=== PATIENT | male | born 2000 | race Hispanic/Latino ===

== ENCOUNTER 2020-06-11 17:44 | Emergency (ER) | payer OTHER ==
[~2020-06-11] VITALS: Ht 165.1 cm; Wt 72.6 kg
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
[2020-06-11] MEDS ORDERED: TOBRAMYCIN/DEXAMETHASONE(OPTH) 3.5 GM TUBE OP ONE (18:45)
[2020-06-11] MEDS ORDERED: TETRACAINE HCL 0.5% OPTH SOLN 4 ML BTL OP ONE (18:45)
--- NOTE | 2020-06-11 20:17 | NUR ---
small metal shard removed by md abad cotton swab
== END 2020-06-11 20:36 | disposition home or self-care (01) ==
LOC: ER 18:16
DX: T15.01XA Foreign body in cornea, right eye, initial encounter (principal); W22.8XXA Striking against or struck by other objects, initial encounter; Y99.0 Civilian activity done for income or pay
CPT/HCPCS: 99283